=== PATIENT | female | born 1955 | race Caucasian/White ===

== ENCOUNTER → 2018-06-30 | Outpatient (CLI) | payer BC ==
[2018-06-30 12:19] LABS: BASOPHILS % (AUTO) 0 % (0-10); EOSINOPHILS % (AUTO) 0 % (0-10); HEMATOCRIT 41 % (35-52); LYMPHOCYTES # (AUTO) 2.1 X 10^3 (1.0-4.0); LYMPHOCYTES % (AUTO) 34 % (12-44); MEAN CORPUSCULAR HEMOGLOBIN 36 PG (25-34); MEAN CORPUSCULAR HGB CONC 35 G/DL (32-36); MEAN CORPUSCULAR VOLUME 104 FL (80-99); MEAN PLATELET VOLUME 9.5 FL (7.4-10.4); MONOCYTES # (AUTO) 0.5 X 10^3 (0.0-1.0); MONOCYTES % (AUTO) 9 % (0-12); NEUTROPHILS # (AUTO) 3.5 X 10^3 (1.8-7.8); NEUTROPHILS % (AUTO) 58 % (42-75); PLATELET COUNT 173 10^3/uL (130-400); RED BLOOD COUNT 3.91 10^6/uL (4.35-5.85); RED CELL DISTRIBUTION WIDTH 13.3 % (10.0-14.5); WHITE BLOOD COUNT 6.1 10^3/uL (4.3-11.0)
[2018-06-30 12:37] LABS: ALANINE AMINOTRANSFERASE 9 U/L (0-55); ALKALINE PHOSPHATASE 75 U/L (40-136); BILIRUBIN,TOTAL 1.2 MG/DL (0.1-1.0); BUN/CREATININE RATIO 11; CALCIUM 9.6 MG/DL (8.5-10.1); CARBON DIOXIDE 25 MMOL/L (21-32); CHLORIDE 108 MMOL/L (98-107); CHOLESTEROL 194 MG/DL (< 200); CREATININE SERUM 0.75 MG/DL (0.60-1.30); GFR ESTIMATED > 60; GLUCOSE 99 MG/DL (70-105); HDL CHOLESTEROL 50 MG/DL (40-60); POTASSIUM 4.5 MMOL/L (3.6-5.0); SODIUM 142 MMOL/L (135-145); TOTAL PROTEIN 6.7 GM/DL (6.4-8.2); TRIGLYCERIDES 58 MG/DL (<150); VLDL CHOLESTEROL 12 MG/DL (5-40)
== END ==
LOC: CARD 12:05
PROVIDERS: ATTEND Nurse Practitioner Family
DX: R07.9 Chest pain, unspecified (principal); R53.83 Other fatigue
CPT/HCPCS: 36415; 80053; 80061; 84443; 85025; 93005

== ENCOUNTER → 2018-07-19 | Outpatient (CLI) | payer BC ==
[~2018-07-19] VITALS: Ht 160 cm; Wt 72.1 kg
[~2018-07-19] MED LIST: CATHETER FLUSH 10 ML SYR IV PRN; REGADENOSON 0.4 MG/5 ML SYR (LEXISCAN) IV ONE
[2018-07-19 13:32] VITALS: BP 128/80
--- NOTE | 2018-07-19 16:28 | STRESS TEST ---
DATE OF SERVICE: 07/19/2018 LEXISCAN MYOVIEW STRESS TEST REPORT INDICATION: Chest pain. Baseline heart rate is 66. Baseline blood pressure 120/80. Baseline EKG is sinus rhythm with no ischemic changes. In summary, the patient was injected with 10.78 mCi of technetium-99 Myoview and the resting images were obtained. Then, the patient received 0.4 mg of Lexiscan followed by 29.3 mCi of technetium-99 Myoview. Throughout the test, there were no EKG changes, occasional PVCs noted during recovery. The resting and stress images were reviewed and compared in the short axis, horizontal long axis and vertical long axis views. Review of the images showed extracardiac attenuation with mild decreased uptake at the base of the anterior wall and anterolateral wall. SSS is 5, SDS 5, TID value is 1.07. On the gated images, the left ventricle appeared to be in normal size with normal contractility. Calculated ejection fraction 62%. CONCLUSION: 1. The patient tolerated Lexiscan well. 2. Breast attenuation affecting the quality of the images with mild decrease uptake involving the base of the anterior wall and anterolateral wall, mild reversibility. No significant ischemia was noted. 3. Normal left ventricular size with normal contractility. Calculated ejection fraction of 66%. Job ID: [id number] DocumentID: [id number] Dictated Date: 07/19/2018 16:00:02 Medical Reception Date: 07/19/2018 16:27:53 Dictated By: MELISSA RAY MD
== END ==
LOC: CARD 11:54
PROVIDERS: ATTEND Internal Medicine Cardiovascular Disease
DX: R07.9 Chest pain, unspecified (principal); R94.31 Abnormal electrocardiogram [ECG] [EKG]; Z72.0 Tobacco use
CPT/HCPCS: 78452; 93017

== ENCOUNTER 2018-09-21 11:07 | Outpatient (RCR) | payer BC ==
[2018-09-11 15:14] LABS: PROTHROMBIN TIME PATIENT 13.3 SEC (12.2-14.7)
== END 2018-12-06 | disposition home or self-care (01) ==
LOC: ONC 11:07
PROVIDERS: ATTEND Internal Medicine Hematology & Oncology
DX: R58 Hemorrhage, not elsewhere classified (principal); R07.9 Chest pain, unspecified
CPT/HCPCS: 36415; 85246; 85610; 85730; 99213; 99214

== ENCOUNTER 2019-10-16 05:30 | Outpatient (CLI) | payer BC ==
[~2019-10-16] VITALS: Ht 160 cm; Wt 68.2 kg
[2019-10-16] MEDS ORDERED: CYCL10TA9 PO (10:50)
== END 2019-10-16 10:59 | disposition home or self-care (01) ==
LOC: PREOP 05:30
PROVIDERS: ATTEND Specialist
DX: Z01.818 Encounter for other preprocedural examination (principal)

== ENCOUNTER 2019-10-19 07:30 | Day surgery (SDC) | payer BC ==
[~2019-10-19] VITALS: Ht 160 cm; Wt 68.2 kg
[~2019-10-19 07:30] MED LIST changes: -CATHETER FLUSH 10 ML SYR IV PRN; +CYCL10TA9 PO; -REGADENOSON 0.4 MG/5 ML SYR (LEXISCAN) IV ONE
[2019-10-19] MEDS ORDERED: TIMOLOL MALEATE 0.5% 5 ML (TIMOPTIC) BTL OU PRN (07:45)
[2019-10-19] MEDS ORDERED: LIDOCAINE PF 1% 2 ML VIAL IR PRN (07:45)
[2019-10-19] MEDS ORDERED: MOXIFLOXACIN OPHTH SOLN 5 MG/ML 0.3 ML SYRINGE OP ONE (07:45)
[2019-10-19] MEDS ORDERED: POVIDONE (BETADINE) OPHTH SOLN 5% 30 ML OP ONE (07:45)
[2019-10-19] MEDS: TETRACAINE 0.5% OPHTH SOLN 4 ML BTL (SINGLE DOSE ONLY) OU PRN ×3 (08:03→08:32)
[2019-10-19 08:06] VITALS: BP 124/68
[2019-10-19] MEDS: CYCLOPENTOLATE 1% (CYCLOGYL) 2 ML DROPS OP SCH ×3 (08:13→08:32)
[2019-10-19] MEDS: PHENYLEPHRINE 10% OPHTH (NEO-SYN) 5 ML BTL OU SCH ×3 (08:13→08:32)
[2019-10-19] MEDS ORDERED: MIDAZOLAM 2 MG/2 ML (VERSED) VIAL ONE (08:54)
--- NOTE | 2019-10-19 08:55 | Ophthalmologist Pre-Op Note ---
Pre-Operative Progress Note H&P Reviewed The H&P was reviewed, patient examined and no changes noted. Date H&P Reviewed: Oct 19, 2019 Time H&P Reviewed: 08:55 Pre-Op Dx Cataract, Right Eye RONEN MCCABE MD Oct 19, 2019 08:55
[2019-10-19] MEDS ORDERED: acetaZOLAMIDE ER 500 MG CAP (DIAMOX SEQUELS) PO ONE (09:00)
--- NOTE | 2019-10-19 09:23 | Ophthalmology Operative Report ---
Cataract removal/placement IOL PREOPERATIVE DIAGNOSIS: Cataract Right Eye POSTOPERATIVE DIAGNOSIS: Cataract Right Eye PROCEDURE: Cataract removal and placement of posterior chamber implant, right eye SURGEON: Leonard Mccabe ANESTHESIA: Topical with sedation COMPLICATIONS: None ESTIMATED BLOOD LOSS: Minimal DESCRIPTION OF PROCEDURE: After proper informed consent was obtained, the patient, a 64 female, was taken to the Operating Room and the right eye was anesthetized with tetracaine. The right eye was then prepped and draped in the usual manner. A wire lid speculum was placed. A paracentesis was made at the left hand position. Preservative free lidocaine was injected into the anterior chamber followed by viscoelastic. A clear corneal incision was made in the temporal position. A capsulorrhexis was preformed and the central nuclear and cortical material were removed. The posterior capsule was polished and Gurpreet 18.0 [id number] IOL was placed into the capsular bag. The residual viscoelastic was aspirated and balanced saline solution was injected into the anterior chamber. Moxifloxacin was injected into the anterior chamber. The wound was checked and found to be water tight. The patient tolerated the procedure well without complications. LEONARD MCCABE MD Oct 19, 2019 09:23
[2019-10-19 09:34] VITALS: BP 121/86
--- NOTE | 2019-10-19 14:15 | Anesthesia-General Post-Op ---
MAC Patient Condition Mental Status/LOC: Same as Preop Cardiovascular: Satisfactory Nausea/Vomiting: Absent Respiratory: Satisfactory Pain: Controlled Complications: Absent Post Op Complications Complications None Follow Up Care/Instructions Patient Instructions None needed. Anesthesiology Discharge Order Discharge Order Patient is doing well, no complaints, stable vital signs, no apparent adverse anesthesia problems. No complications reported per nursing. PATRICIA GRACE CRNA Oct 19, 2019 14:15
== END 2019-10-19 09:33 | disposition home or self-care (01) ==
LOC: SDC 07:30
PROVIDERS: ATTEND Specialist
DX: H25.11 Age-related nuclear cataract, right eye (principal); F17.200 Nicotine dependence, unspecified, uncomplicated; Z88.1 Allergy status to other antibiotic agents; Z88.5 Allergy status to narcotic agent; Z88.8 Allergy status to other drugs, medicaments and biological substances; Z79.899 Other long term (current) drug therapy; Z83.511 Family history of glaucoma

== ENCOUNTER → 2022-05-11 | Outpatient (CLI) | payer BC ==
[~2022-05-11] MED LIST changes: +CATHETER FLUSH 10 ML SYR IV PRN; +CYCL10TA25 PO; -CYCL10TA9 PO; +HOLD METFORMIN - RECEIVED CONTRAST 20 ML VIAL IV SCH; +IOHEXOL 350 MG/ML 100 ML (OMNIPAQUE 350) VIAL IV ONE; +NS 100 ML (IVPB) BAG IV ONE
--- NOTE | 2022-05-11 14:02 | Diagnostic Imaging Report ---
PROCEDURE: CT neck soft tissue with contrast. TECHNIQUE: Multiple contiguous axial images were obtained through the neck after the administration of contrast. Auto Exposure Controls were utilized during the CT exam to meet ALARA standards for radiation dose reduction. INDICATION: Palpable fullness in the right neck. COMPARISON: No priors. FINDINGS: There is a solid mass in the right parotid within its lower tail measuring 1.8 x 1.5 cm. Contralateral left parotid showed a juxta-glandular ovoid nodule, likely a small lymph node measuring 9 mm x 7 mm. Submandibular glands are normal. There is no stone. There is no evidence for sialoadenitis. No abscess, hematoma, or acute fluid collection. The prevertebral and retropharyngeal spaces are normal. Nasopharynx, oropharynx, and hypopharynx are normal. The orbits, the paranasal sinuses, and the mastoids are normal. Visualized intracranial contents are normal. Carotid and jugular vascularity showed normal enhancement. Thoracic inlet, superior mediastinum, and visualized pulmonary apices are nonacute with the lungs showing some centrilobular emphysema. IMPRESSION: 1. Intraparotid mass on the right, indeterminate benign versus malignant. The mass would be amenable to percutaneous sampling, and if image guidance was required, this could be done under CT guidance. 2. No suspicious lymph nodes, and no mucosal lesion or airway embarrassment. No abscess, fluid collection, or acute inflammatory changes. Dictated by: Dictated on workstation # [id number]
== END ==
LOC: RAD 12:39
PROVIDERS: ATTEND Family Medicine
DX: R22.1 Localized swelling, mass and lump, neck (principal)
CPT/HCPCS: 70491